=== PATIENT | female | born 1950 | race Caucasian/White ===

== ENCOUNTER → 2016-12-29 | Outpatient (CLI) | payer OTHER ==
[~2016-12-29] MED LIST: ADVAIR 250-501 EACH INH; ALBUTEROL0.63 MG/3 NEB; ALPRAZOLAM0.5 MG PO; CELEBREX100 MG PO; COMBIVENT U/D3 M2 INH; COUMADIN10 MG PO; DIOVAN80 M1 PO; FLEXERIL10 MG PO; FUROSEMIDE40 MG PO; HYDROCODON-ACE1 EAC5 PO; IPRAT-ALBUT 0.5-3 ML INH; K-DUR20 ME1 PO; LANTUS SOL100 UNIT/1 SUBQ; LIPITOR20 MG PO; NAPROXEN PO; NEURONTIN600 MG PO; NOVOLOG FL100 UNIT/1 SUBQ; OXYGEN; PREDNISONE PO; ROBAXIN500 MG PO; TRAMADOL HCL50 M1 PO
--- NOTE | ~2016-12-29 | CR63 ---
[facility] A Service of [facility] RADIOLOGY TEXT RESULTS PATIENT: MAHIN MILLER LOCATION: [facility] : 54 UNIT #: [id number] AGE: [address]: Ulises Gunn MD SEX: F ORDER DR: [id number] [facility] [address] [place], [place] [address] [id number] O MR#: [id number] Acc #: [id number] NAME: MAHIN MILLER : 1950 SEX: F STUDY DATE/TIME: 12/29/2016 13:17 UNIT: [facility] ROOM: STUDY DESCRIPTION: CR Chest 2 View Attending Physician: Ulises Gunn M.D. Referring Physician: Ulises Gunn M.D. Ordering Physician: Ulises Gunn M.D. Primary Care Physician: Rob Garcia M.D. MEDICAL IMAGING REPORT This report is preliminary unless electronic signature is present EXAM Chest 12/29/2016 HISTORY 66-year-old woman, preop clearance left knee arthroscopy for excision of scar tissue. History of hypoglycemia, hyperlipidemia, hypertension. COMPARISON STUDIES 12/06/2015. FINDINGS Two-view chest demonstrates borderline cardiac enlargement with stable appearance. Central vascular structures are prominent. Lungs are clear with chronic scarring and/or atelectasis projecting in the left lung base medially and posteriorly. Costophrenic angles are preserved. IMPRESSION 1. No acute chest finding. 2. Borderline cardiac enlargement. 3. Chronic atelectasis/scarring left lower lobe posteriorly. Dictated by... Gregory Ruvalcaba M.D. THIS IS AN ELECTRONICALLY VERIFIED REPORT Gregory Ruvalcaba M.D. at 12/30/2016 3:01 PM ROSA/kenneth TD: 12/29/2016 20:42 JOB #: [id number] [facility] A Service of [facility] RADIOLOGY TEXT RESULTS PATIENT: MAHIN MILLER LOCATION: [facility] #: [id number] : 54 UNIT #: [id number] AGE: [address]: Ulises Gunn MD SEX: F ORDER DR: MEDICAL IMAGING REPORT Page 1 of 1 COPY
--- NOTE | ~2016-12-29 | EKG ---
PATIENT: MAHNI MILLER UNIT #: [id number] Ventricular Rate: 72 BPM Atrial Rate: 72 BPM P-R Interval: 204 ms QRS Duration: 104 ms Q-T Interval: 402 ms QTC Calculation(Bezet): 440 ms P [place]: 34 degrees Calculated R [place]: -10 degrees Calculated T [place]: 73 degrees Diagnosis Line: Normal sinus rhythm Diagnosis Line: Septal infarct , age undetermined Diagnosis Line: Abnormal ECG Diagnosis Line: When compared with ECG of 05-JAN-2016 02:25, Diagnosis Line: Septal infarct is now Present Diagnosis Line: Confirmed by FRAN MUIR MD ([id number]) on 01/03/2017 Diagnosis Line: 2:34:05 PM INTERPRETING MD: ISADORA ROBBINS
[2016-12-29 12:30] LABS: URINE APPEARANCE CLOUDY; URINE BILIRUBIN NEG (NEG); URINE BLOOD NEG (NEG); URINE COLOR DK YELLOW; URINE GLUCOSE >1000 MG/DL (NEG); URINE KETONE NEG (NEG); URINE LEUKOCYTE ESTERASE NEG (NEG); URINE NITRATE NEG (NEG); URINE PH 5.5 (5-8); URINE PROTEIN 1+ (NEG); URINE SPECIFIC GRAVITY 1.028 (1.003-1.035)
[2016-12-29 12:33] LABS: CULTURE INDICATED? YES; HEMATOCRIT 41.4 % (35.0-45.0); HEMOGLOBIN 14.1 gm/dL (12.0-16.0); MEAN CELL VOLUME 89.8 FL (83-96); MEAN CORPUSCULAR HEMOGLOBIN 30.6 PG (28-34); MEAN CORPUSCULAR HGB CONC 34.1 g/dL (30-36); RED BLOOD COUNT 4.6 X10e (3.90-5.30); RED CELL DISTRIBUTION WIDTH 14.5 % (11.0-15.5); URINE BACTERIA AUWI 4+ (NEGATIVE); URINE SQUAMOUS EPITHELIAL CELL OCC /[HPF]; WHITE BLOOD COUNT 2.8 X10e3 (4.0-10.5)
[2016-12-29 13:10] LABS: BUN/CREATININE RATIO 43.33; CALCIUM SERUM 9.1 mg/dL (8.4-10.2); CREATININE SERUM 0.3 mg/dL (0.6-1.4); GLOM FILT RATE Estimated 121.1 mL/min (>60); POTASSIUM 4.2 mmol/L (3.5-5.1)
[2016-12-29 13:12] LABS: URINE SOURCE CLEAN CATCH
[2016-12-29 13:13] LABS: URINE YEAST PRESENT
[2016-12-29 13:15] LABS: URBCS1 AUWI 0-2 /[HPF] (0-2)
== END | disposition home or self-care (01) ==
LOC: CAMB 11:36
PROVIDERS: Orthopaedic Surgery
DX: Z01.818 Encounter for other preprocedural examination (principal); M24.662 Ankylosis, left knee; R91.8 Other nonspecific abnormal finding of lung field
CPT/HCPCS: 36415; 71020; 80048; 81003; 85027; 85652; 86140; 86850; 86900; 86901; 87086; 93005

== ENCOUNTER → 2017-01-08 | Day surgery (SDC) | payer OTHER ==
--- NOTE | ~2017-01-08 | OR ---
Unit #: [id number] #: [id number] Patient: MAHIN MILLER 211989 [address] [address] [id number] O MR#: [id number] NAME: MAHIN MILLER ROOM: Date of Procedure: 01/08/2017 Admission Date: 01/08/2017 Surgeon: Ulises Gunn M.D. : 1950 Attending Physician: Ulises Gunn M.D. Referring Physician: Ulises Gunn M.D. OPERATIVE REPORT PREOPERATIVE DIAGNOSIS Arthrofibrosis, left total knee. POSTOPERATIVE DIAGNOSIS Arthrofibrosis, left total knee. PROCEDURE PERFORMED Arthroscopic excision of scar tissue and then manipulation, left total knee . ANESTHESIA General. ESTIMATED BLOOD LOSS 25 mL. DESCRIPTION OF PROCEDURE The patient was brought to the operating room, was given 3 g of Ancef, brought back to the OR and given a general anesthetic. Tourniquet placed around the left thigh. Left leg was exsanguinated. Tourniquet inflated to 300, placed in a leg rubio, and prepped and draped. The arthroscope was introduced through the inferolateral portal. There was a scar tissue present in the suprapatellar pouch and the medial and lateral gutters. Using the 3.5 shaver blade, we were able to remove a large amount of this. We then removed the fluid from the knee and injected 15 mL of 0.5% plain Marcaine. The portals were closed with interrupted sutures of 3-0 nylon. We then manipulated the knee and had flexion to about 105 to 110. The patient's dressing was applied and her general anesthetic was reversed. Dictated by... Paul Ibrahim/ariana TD: 01/08/2017 11:54 JOB #: [id number] Unit #: [id number] #: [id number] Patient: MAHIN MILLER OPERATIVE REPORT Page 1 of 1 X Ulises Gunn MD PROCEDURE OPERATIVE NOTE
[2017-01-08 06:45] LABS: URINE APPEARANCE CLOUDY; URINE BILIRUBIN NEG (NEG); URINE BLOOD NEG (NEG); URINE COLOR DK YELLOW; URINE GLUCOSE 500 MG/DL (NEG); URINE KETONE NEG (NEG); URINE LEUKOCYTE ESTERASE 2+ (NEG); URINE NITRATE NEG (NEG); URINE PH 5.5 (5-8); URINE PROTEIN 1+ (NEG)
[2017-01-08 06:47] LABS: CULTURE INDICATED? YES; URINE BACTERIA AUWI 4+ (NEGATIVE); URINE SQUAMOUS EPITHELIAL CELL OCC /[HPF]; UWBCS1 AUWI 50-100 (0-5)
[2017-01-08 06:49] LABS: URINE SOURCE CLEAN CATCH
== END | disposition home or self-care (01) ==
LOC: CSUR 06:05
PROVIDERS: Orthopaedic Surgery
DX: M24.662 Ankylosis, left knee (principal); E11.9 Type 2 diabetes mellitus without complications; E78.5 Hyperlipidemia, unspecified; E66.9 Obesity, unspecified; J44.9 Chronic obstructive pulmonary disease, unspecified; M17.0 Bilateral primary osteoarthritis of knee; I11.0 Hypertensive heart disease with heart failure; I50.9 Heart failure, unspecified; Z79.1 Long term (current) use of non-steroidal anti-inflammatories (NSAID); Z68.41 Body mass index [BMI] 40.0-44.9, adult; Z86.73 Personal history of transient ischemic attack (TIA), and cerebral infarction without residual deficits; Z79.4 Long term (current) use of insulin; Z90.710 Acquired absence of both cervix and uterus; Z90.49 Acquired absence of other specified parts of digestive tract; Z90.721 Acquired absence of ovaries, unilateral; Z87.891 Personal history of nicotine dependence; Z98.890 Other specified postprocedural states; Z98.42 Cataract extraction status, left eye; Z98.41 Cataract extraction status, right eye; Z89.522 Acquired absence of left knee; Z79.899 Other long term (current) drug therapy
CPT/HCPCS: 36430; 81003; 82947; 86850; 86900; 86901; 87086; J0690; J2405; J3010; P9035